=== PATIENT | female | born 1960 | race Caucasian/White ===

== ENCOUNTER 2017-04-16 20:26 | Observation (INO) | payer BC ==
[~2017-04-16] VITALS: Ht 177.8 cm; Wt 142.0 kg
[~2017-04-16 20:26] MED LIST: ALEVE220 MG PO; BENICAR HCT 401 EACH PO; BENICAR20 MG PO; OMEPRAZOLE40 M1 PO; XANAX0.5 MG PO; ZOCOR40 MG PO; ZOLOFT50 MG PO; [UNRECOGNIZED DRUG - OTHER] PO
[2017-04-16 21:20] LABS: HEMATOCRIT 40.5 % (36.0-46.0); MCH 28.4 PG (29.0-34.0); MCHC 32.8 G/DL (30.0-36.0); MCV 86.5 FL (83-99); MEAN PLAT.VOLUME 11.9 uM^3 (9.5-12.4); PLATELET COUNT 216 K/uL (156-360); RBC DIS.WIDTH-CV 12.8 % (11.8-14.6); RBC DIS.WIDTH-SD 40.1 % (39-53); RED BLOOD COUNT 4.68 M/uL (3.80-5.20); WHITE BLOOD COUNT 10.5 K/uL (4.1-10.2)
[2017-04-16 21:32] LABS: CHLORIDE 106 mEq/L (99-109); POTASSIUM 4.1 mEq/L (3.7-5.4); SODIUM 143 mEq/L (136-147)
[2017-04-16 21:34] LABS: GLUCOSE 120 mg/dL (70-99)
[2017-04-16 21:35] LABS: ANION GAP 13 MEQ/L (2-14)
[2017-04-16 21:38] LABS: GFR ESTIMATE (CALCULATED) > 59 mL/min/
[2017-04-16 21:39] LABS: UREA NITROGEN (BUN) 12 mg/dL (9-23)
[2017-04-16 22:02] LABS: TROP-I INTERPRETATION NEGATIVE; TROPONIN-I < 0.01 ng/mL (0.0-0.30)
[2017-04-16 22:54] LABS: D-DIMER ELISA < 150.00 ng/mLDDU (<230)
[2017-04-16] MEDS ORDERED: TRULICITY0.75 MG/0. SC (23:29)
[2017-04-16] MEDS ORDERED: ATORVASTATIN CA20 MG PO (23:30)
[2017-04-16] MEDS ORDERED: BRINTELLIX10 MG PO (23:31)
[2017-04-16] MEDS ORDERED: OLMESARTAN-HCT1 EAC1 PO (23:31)
[2017-04-17 02:07] VITALS: BP 168/77
[2017-04-17 05:10] LABS: TROP-I INTERPRETATION NEGATIVE; TROPONIN-I < 0.01 ng/mL (0.0-0.30)
[2017-04-17 09:33] VITALS: BP 138/65
[2017-04-17 10:51] LABS: TROP-I INTERPRETATION NEGATIVE; TROPONIN-I 0.01 ng/mL (0.0-0.30)
[2017-04-17] MEDS ORDERED: CEPHALEXIN500 MG PO (11:02)
[2017-04-17] MEDS ORDERED: HYDROCHLOROTH12.5 M3 PO (11:03)
[2017-04-17 12:07] VITALS: BP 150/77
== END 2017-04-17 14:31 | disposition home or self-care (01) ==
LOC: EME 20:26 → ENPENDDIS 04-17 → EDOF 04-17 00:01 → ENRESERV 04-17 00:03 → 5WEST 04-17 01:42
PROVIDERS: Emergency Medicine; Hospitalist; Physician Assistant
DX: R06.02 Shortness of breath (principal); R22.43 Localized swelling, mass and lump, lower limb, bilateral; R94.31 Abnormal electrocardiogram [ECG] [EKG]; E66.01 Morbid (severe) obesity due to excess calories; Z68.41 Body mass index [BMI] 40.0-44.9, adult; M79.604 Pain in right leg; M79.605 Pain in left leg; I10 Essential (primary) hypertension; E11.9 Type 2 diabetes mellitus without complications; E78.5 Hyperlipidemia, unspecified; R51 Headache; D72.829 Elevated white blood cell count, unspecified; K21.9 Gastro-esophageal reflux disease without esophagitis; F32.9 Major depressive disorder, single episode, unspecified; F41.9 Anxiety disorder, unspecified
CPT/HCPCS: 71020; 80048; 82948; 83880; 84484; 85027; 85379; 93005; 93970; 99281; 99284; G0378; J1644